=== PATIENT | female | born 1970 | race American Indian/Alaskan Native ===

== ENCOUNTER 2018-01-10 07:42 | Day surgery (SDC) | payer OTHER ==
[2018-01-05 09:53] VITALS: BMI 33.1
[2018-01-10 08:43] VITALS: O2SAT 100
[2018-01-10] MEDS ORDERED: Propofol 10 mg/ml Inj (20 ML) ONE ×2 (09:59→10:29)
[2018-01-10] MEDS ORDERED: HYDROmorphone 0.5 mg/0.5 ml ISec IVP PRN (10:43)
[2018-01-10 12:06] VITALS: BP 130/64; PULSE 80; RESP 18; TEMP 97
--- NOTE | 2018-01-11 07:37 | OP ---
PROCEDURE DATE: 01/10/2018 PREOPERATIVE DIAGNOSIS: A 47-year-old 2, para 2 with menometrorrhagia and fibroid uterus. POSTOPERATIVE DIAGNOSIS: A 47-year-old 2, para 2 with menometrorrhagia and fibroid uterus. SURGEON: Lee Oneill MD [employer]OD DRILLING MACHINE OPERATOR: None. TYPE OF ANESTHESIA: General anesthesia. ANESTHESIA ADMINISTERED BY: Josué Richards MD PROCEDURES PERFORMED: MyoSure, dilatation and curettage, hysteroscopy. ESTIMATED BLOOD LOSS: 20 mL. DEFICIT: 100 mL. DESCRIPTION OF PROCEDURE: After informed consent was obtained, the patient was brought to the operating room, placed on the table where general anesthesia was administered. She was prepped and draped in normal sterile fashion. Examination found the uterus to be at the vertex, about 8 weeks' size. No pelvic or adnexal mass. The anterior lip of cervix was grasped with a tenaculum. Gentle dilatation of the cervix was done. Hysteroscope was introduced and found the polyp to be on the anterior wall of the uterus. Pictures were taken and then, the decision was to use the MyoSure. MyoSure was used to move out the polyp or fibroid. It was sent to Pathology. After that, sharp curettage of the endometrium was done, it was ECC, was sent to Pathology. Then, the tenaculum was taken out of the anterior lip of the cervix, after that, it was hemostatic. The patient tolerated the procedure well. Lap, sponge, and instrument counts were correct x2. Lee Oneill MD
== END 2018-01-10 13:24 | disposition home or self-care (01) ==
LOC: C.SDS 07:42
PROVIDERS: ATTEND Obstetrics & Gynecology
DX: N92.4 Excessive bleeding in the premenopausal period (principal); D25.1 Intramural leiomyoma of uterus
CPT/HCPCS: 58558; 88305; J1170; J2704; J3010